=== PATIENT | female | born 1960 | race Caucasian/White ===

== ENCOUNTER 2020-07-29 13:00 | Outpatient (REF) | payer OTHER, SELFPAY ==
[2020-07-29 13:23] LABS: COVID-19 Test Negative (Negative); IDNOW Serial# 55D5AD1C
== END 2020-07-29 13:01 | disposition home or self-care (01) ==
LOC: HO.LAB 13:00
PROVIDERS: Visit Provider Internal Medicine
DX: Z20.822 Contact with and (suspected) exposure to COVID-19 (principal)
CPT/HCPCS: 36415; 87635; C9803

== ENCOUNTER 2020-08-06 08:14 | Outpatient (REF) | payer OTHER, SELFPAY ==
[2020-08-06 08:38] LABS: COVID-19 Test Negative (Negative)
== END 2020-08-06 08:15 | disposition home or self-care (01) ==
LOC: HO.EMPCOV 08:14
PROVIDERS: Visit Provider Internal Medicine
DX: Z20.822 Contact with and (suspected) exposure to COVID-19 (principal)
CPT/HCPCS: 36415; 87635; C9803

== ENCOUNTER 2020-10-28 08:01 | Outpatient (REF) | payer OTHER, SELFPAY ==
[2020-10-28 09:07] LABS: COVID-19 Test Negative (Negative); IDNOW Serial# 55D5AD1C
== END 2020-10-28 08:02 | disposition home or self-care (01) ==
LOC: HO.EMPCOV 08:01
PROVIDERS: Visit Provider Internal Medicine
DX: Z20.822 Contact with and (suspected) exposure to COVID-19 (principal)
CPT/HCPCS: 36415; 87635; C9803